=== PATIENT | female | born 1945 | race African-American/Black ===

== ENCOUNTER 2017-06-21 11:46 | Emergency (ER) | payer OTHER ==
[~2017-06-21] VITALS: Ht 157.5 cm; Wt 118.0 kg
[2017-06-21] MEDS ORDERED: KETOROLAC 60MG/2ML VIAL IM ONE (14:30)
[2017-06-21 16:21] VITALS: BP 140/68
== END 2017-06-21 16:22 | disposition home or self-care (01) ==
LOC: ER 14:55
DX: S93.401A Sprain of unspecified ligament of right ankle, initial encounter (principal); M77.31 Calcaneal spur, right foot; I10 Essential (primary) hypertension; E11.9 Type 2 diabetes mellitus without complications; Z91.041 Radiographic dye allergy status; X58.XXXA Exposure to other specified factors, initial encounter; Y93.89 Activity, other specified; Y99.8 Other external cause status; Y92.89 Other specified places as the place of occurrence of the external cause
CPT/HCPCS: 73610; 93971; 96372; 99284; J1885

== ENCOUNTER 2019-07-09 09:23 | Emergency (ER) | payer OTHER ==
[~2019-07-09] VITALS: Ht 157.5 cm; Wt 115.0 kg
[2019-07-09] MEDS ORDERED: DEXAMETHASONE 4MG/ML 1ML VIAL IM ONE (10:00)
[2019-07-09] MEDS ORDERED: KETOROLAC 60MG/2ML VIAL IM ONE (10:00)
[2019-07-09 11:28] VITALS: BP 150/89
== END 2019-07-09 11:29 | disposition home or self-care (01) ==
LOC: ER 09:23
DX: M54.30 Sciatica, unspecified side (principal); I10 Essential (primary) hypertension; Z91.041 Radiographic dye allergy status; Z91.013 Allergy to seafood; Z91.018 Allergy to other foods; Z98.51 Tubal ligation status
CPT/HCPCS: 96372; 99283; J1100; J1885